=== PATIENT | male | born 1960 | race Caucasian/White ===

== ENCOUNTER 2018-07-24 09:04 | Emergency (ER) | payer MEDICAID ==
[~2018-07-24] VITALS: Ht 172.7 cm; Wt 102.1 kg
--- NOTE | 2018-07-24 09:11 | NUR ---
PT BIB FROM THE STREETS, STATING PEOPLE ARE AFTER HIM; HEARING VOICES; PT ALERT, VERBALLY RESPONSIVE, SAFETY PRECAUTIONS STARTED, PT TO BED 13, PENDING MD KELLEY.
[2018-07-24 09:36] LABS: BASOPHILS % (AUTO) 0.9 % (0.0-2.0); EOSINOPHILS % (AUTO) 2.2 % (0.0-6.0); HEMATOCRIT 51 % (39-51); HEMOGLOBIN 17.3 g/dL (13.5-17.5); LYMPHOCYTES # (AUTO) 1.3 /CMM (0.8-4.8); MEAN CORPUSCULAR HGB CONC 34 g/dl (31.0-36.0); MEAN CORPUSCULAR VOLUME 97 fL (80-96); MONOCYTES # (AUTO) 0.6 /CMM (0.1-1.30); MONOCYTES % (AUTO) 13.1 % (2.0-12.0); NEUTROPHILS # (AUTO) 2.8 /CMM (1.8-8.9); NEUTROPHILS % (AUTO) 56.8 % (43.0-81.0); PLATELET COUNT (AUTO) 167 /CMM (150-450); RED BLOOD CELL COUNT(AUTO) 5.32 MIL/uL (4.5-6.0); WHITE BLOOD COUNT (AUTO) 4.9 K/uL (4.3-11.0)
[2018-07-24 09:44] LABS: CALCIUM, SERUM 8.2 mg/dL (8.5-10.1); CARBON DIOXIDE 30 mmol/L (21-32); CHLORIDE 105 mmol/L (98-107); CREATININE 0.7 mg/dL (0.6-1.3); GLUCOSE 94 mg/dL (74-106); SODIUM SERUM 141 mmol/L (136-145); UREA NITROGEN, BLOOD 14 mg/dL (7-18)
[2018-07-24 09:50] LABS: ACETAMINOPHEN < 2 ug/ml (10-30); ALANINE AMINOTRANSFERASE 70 U/L (12-78); ALBUMIN 3.3 g/dL (3.4-5.0); ALCOHOL, BLOOD < 3 mg/dL (0-0); ALKALINE PHOSPHATASE 96 U/L (46-116); ASPARTATE AMINOTRANSFERASE 65 U/L (15-37); BILIRUBIN,DIRECT 0.2 mg/dL (0.0-0.2); SALICYLATE 0.2 mg/dL (2.8-20.0); TOTAL PROTEIN, SERUM 7.5 g/dL (6.4-8.2)
--- NOTE | 2018-07-24 09:56 | NUR ---
VOLODYMYR SHERWOOD PAGED FOR PSYCH EVAL. ETA 1 HOUR
--- NOTE | 2018-07-24 10:16 | NUR ---
URINE COLLECTED AND SENT TO LAB
[2018-07-24 10:21] LABS: APPEARANCE,URINE Clear (CLEAR); BILIRUBIN,URINE Negative (NEGATIVE); BLOOD, URINE Negative Ery/uL (NEGATIVE); COLOR,URINE Yellow (YELLOW); KETONES,URINE Negative (NEGATIVE); LEUKOCYTE ESTERASE ,URINE Negative (NEGATIVE); NITRITE, URINE Negative (NEGATIVE); PH,URINE 5.5 (5.0-8.0); PROTEIN,URINE Negative (NEGATIVE); UGLUCOSE Negative (NEGATIVE)
[2018-07-24 10:51] LABS: BACTERIA,URINE Rare /HPF (None Seen); RBC,URINE NONE SEEN /HPF (0-2); SQUAMOUS EPITHELIAL CELL,UR Few /HPF (None Seen); WBC,URINE NONE SEEN /HPF (0-3)
[2018-07-24 15:33] VITALS: BP 123/65
--- NOTE | 2018-07-24 15:33 | NUR ---
UPDATED PT REGARDING POSSIBLE ADMISSION TO [facility] [place] [facility]; NO ETA YET. PT OFFERED LUNCH TRAY, REFUSED. PT WAS VERBALLY ABUSIVE TOWARDS STAFF, SPOKE TO PT IN CALM MANNER, REMINDED PT THAT THERE ARE OTHER PT'S IN THE VICINITY. CALLED SECURITY TO DE-ESCALATE SITUATION, PT WALKED TOWARDS THE NURSING STATION. ATTEMPTED TO CALM PT DOWN, SECURITY PRESENT, PT WALKED OUT OF THE FACILITY. PT AMBUALTORY WITH STEADY GAIT, PT ALERT AND ORIENTED, NO HOLD PER FACILITY CLINICIAN .
== END 2018-07-24 15:33 | disposition left against medical advice (07) ==
LOC: ER 09:13
DX: F23 Brief psychotic disorder (principal); F17.200 Nicotine dependence, unspecified, uncomplicated
CPT/HCPCS: 36415; 80048; 80076; 80305; 80307; 80329; 81001; 85025; 99284; G0480; 81000-TC